=== PATIENT | female | born 1935 | race Caucasian/White ===

== ENCOUNTER 2017-01-07 06:40 | Emergency (ER) | payer OTHER ==
[~2017-01-07] VITALS: Ht 162.6 cm; Wt 68.4 kg
[~2017-01-07 06:40] MED LIST: ASPIR 8181 M1 PO; ASPIRIN325 MG PO; ATORVASTATIN CA10 MG PO; CRESTOR5 MG PO; FENOFIBRATE200 M1 PO; HYDROCHLOROTHIA25 MG PO; LOPRESSOR25 MG PO; METOPROLOL TART50 MG PO; OXYBUTYNIN CHLO15 MG PO; PRESERVISION A1 EAC2 PO; RANITIDINE HCL150 MG PO; TYLENOL EXTRA500 MG PO; ZESTRIL,PRINIVI10 MG PO
[2017-01-07 07:53] LABS: ADD MIUA? YES; BILIRUBIN NEGATIVE; BLOOD NEGATIVE; COLOR YELLOW ((YELLOW)); GLUCOSE (STRIP) NEGATIVE; KETONES NEGATIVE; LEUKOCYTES MODERATE; NITRITE NEGATIVE; PROTEIN (STRIP) NEGATIVE; UROBILINOGEN 0.2 MG/DL (0.2-1.0)
[2017-01-07 08:08] VITALS: BP 167/73
[2017-01-07] MEDS ORDERED: PREDNISONE20 MG PO (08:30)
[2017-01-07] MEDS ORDERED: LIDODERM 5% P1 PATCH TD (08:30)
[2017-01-07] MEDS ORDERED: NAPROXEN500 MG PO (08:30)
[2017-01-07 09:13] LABS: BACTERIA NONE SEEN /HPF; EPITHELIAL CELLS RARE /HPF; MUCUS NONE SEEN /LPF; RED BLOOD CELLS 0-5 /HPF (0-5); UCUL ADDED? YES
[2017-01-07] MEDS ORDERED: BACTRIM,SEPT1 TABLET PO (09:21)
== END 2017-01-07 09:37 | disposition home or self-care (01) ==
LOC: EME 06:40
PROVIDERS: Physician Assistant
DX: M54.31 Sciatica, right side (principal); M25.551 Pain in right hip; M16.0 Bilateral primary osteoarthritis of hip; N39.0 Urinary tract infection, site not specified; Z91.041 Radiographic dye allergy status; Z88.8 Allergy status to other drugs, medicaments and biological substances
CPT/HCPCS: 73522; 81003; 87086; 99281; 99285; J1885; J2930; J3010